=== PATIENT | female | born 1965 | race Caucasian/White ===

== ENCOUNTER 2018-03-03 19:17 | Emergency (ER) | payer SELFPAY ==
[~2018-03-03] VITALS: Ht 177.8 cm; Wt 72.6 kg
[2018-03-03] MEDS ORDERED: XARELTO10 MG ORAL (19:23)
--- NOTE | 2018-03-03 19:39 | Emergency Room Report ---
History of Present Illness General Chief Complaint: General Complaint Source: Patient Present Illness HPI Patient is a 52-year-old female who presents after increased bilateral leg swelling after the plane flight from [place]. Patient reports having prior history of factor V Leiden. She is normally takes Xarelto prophylactically to prevent DVT. She reports having increased swelling to both legs. She presented having episode where she began having increased pain to the right upper extremity which subsequently she began having some right-sided chest pain. She denies any current pain. She states that her breathing does not feel normal currently however she does not feel short of breath at this time. Allergies: Coded Allergies: No Known Allergies (Unverified , 03/03/18) Patient History Past Medical History: see triage record Last Menstrual Period: February 15 Now: No Reviewed Nursing Documentation: PMH: Agreed; PSxH: Agreed Review of Systems All Other Systems: negative except mentioned in HPI Physical Exam Vital Signs Date Time Temp Pulse Resp B/P (MAP) Pulse Ox O2 Delivery O2 Flow Rate FiO2 03/03/18 19:16 97.7 109 16 123/82 98 Room Air 97.7 Sp02 EP Interpretation: reviewed, normal General Appearance: normal inspection, well appearing, no apparent distress, alert, GCS 15, non-toxic Head: atraumatic Eyes: bilateral eye PERRL ENT: normal ENT inspection, hearing grossly normal, normal voice Neck: normal inspection, full range of motion, supple, no bony tend Respiratory: normal inspection, lungs clear, normal breath sounds, no respiratory distress, no retraction, no wheezing Cardiovascular #1: regular rate, rhythm, no edema Gastrointestinal: normal inspection, normal bowel sounds, non tender, soft, no guarding, no hernia Musculoskeletal: normal inspection, back normal, gait/station normal, normal range of motion, no calf tenderness, Brad's Sign negative Neurologic: normal inspection, alert, oriented x3, responsive, [employer] III-XII nml as tested, motor strength/tone normal, speech normal Psychiatric: normal inspection, judgement/insight normal, mood/affect normal Skin: normal inspection, normal color, no rash Medical Decision Making Diagnostic Impression: Primary Impression: Pedal edema Additional Impressions: Abnormal EKG Liver lesion ER Course Patient presented for bilateral lower extremity swelling and palpitations. Differential diagnosis included was not limited to the pulmonary embolism, arrhythmia, hyperthyroidism, pericardial effusion, among othersBecause of complexity of patient's case laboratory testing and imaging studies were ordered. The patient was being previously healthy. She was noted to have initial sinus tachycardia. This seemed to resolve spontaneously. The patient was noted to have multiple risk factors for pulmonary embolism including factor V Leiden. CT of the chest was ordered and patient was informed of the radiation risks. She wants to proceed with CT chest. CT of chest read by radiology showed no evidence of acute pulmonary embolism. The laboratory studies were essentially unremarkable. The duplex ultrasound was ordered however given the patient's negative d-dimer which presented after CT was performed the DVT ultrasound is unlikely to be positive. The patient is advised follow-up with cardiology and to have further imaging done for incidental liver finding on CT Labs Test 03/03/18 19:45 White Blood Count 7.8 K/UL (4.8-10.8) Red Blood Count 4.45 M/UL (4.20-5.40) Hemoglobin 13.6 G/DL (12.0-16.0) Hematocrit 37.9 % (37.0-47.0) Mean Corpuscular Volume 85 FL (80-99) Mean Corpuscular Hemoglobin 30.5 PG (27.0-31.0) Mean Corpuscular Hemoglobin Concent 35.8 G/DL (32.0-36.0) Red Cell Distribution Width 11.3 % (11.6-14.8) Platelet Count 197 K/UL (150-450) Mean Platelet Volume 8.8 FL (6.5-10.1) Neutrophils (%) (Auto) 60.8 % (45.0-75.0) Lymphocytes (%) (Auto) 27.7 % (20.0-45.0) Monocytes (%) (Auto) 9.4 % (1.0-10.0) Eosinophils (%) (Auto) 1.0 % (0.0-3.0) Basophils (%) (Auto) 1.1 % (0.0-2.0) Prothrombin Time 11.0 SEC (9.30-11.50) Prothromb Time International Ratio 1.0 (0.9-1.1) Activated Partial Thromboplast Time 28 SEC (23-33) D-Dimer 0.23 mg/L FEU (0.00-0.49) Sodium Level 136 MMOL/L (136-145) Potassium Level 4.1 MMOL/L (3.5-5.1) Chloride Level 108 MMOL/L (98-107) Carbon Dioxide Level 23 MMOL/L (21-32) Anion Gap 5 mmol/L (5-15) Blood Urea Nitrogen 15 mg/dL (7-18) Creatinine 1.0 MG/DL (0.55-1.30) Estimat Glomerular Filtration Rate 58.7 mL/min (>60) Glucose Level 110 MG/DL (74-106) Calcium Level 9.6 MG/DL (8.5-10.1) Total Bilirubin 0.6 MG/DL (0.2-1.0) Aspartate Amino Transf (AST/SGOT) 19 U/L (15-37) Alanine Aminotransferase (ALT/SGPT) 22 U/L (12-78) Alkaline Phosphatase 85 U/L (46-116) Troponin I 0.007 ng/mL (0.000-0.056) Total Protein 7.6 G/DL (6.4-8.2) Albumin 3.8 G/DL (3.4-5.0) Globulin 3.8 g/dL Albumin/Globulin Ratio 1.0 (1.0-2.7) Urine Opiates Screen Negative (NEGATIVE) Urine Barbiturates Screen Negative (NEGATIVE) Phencyclidine (PCP) Screen Negative (NEGATIVE) Urine Amphetamines Screen Negative (NEGATIVE) Urine Benzodiazepines Screen Negative (NEGATIVE) Urine Cocaine Screen Negative (NEGATIVE) Urine Marijuana (THC) Screen Negative (NEGATIVE) EKG Diagnostic Results Rate: tachycardiac Rhythm: NSR - 101 ST Segments: no acute changes ASA given to the pt in ED: No Rhythm Strip Diag. Results EP Interpretation: yes Rhythm: NSR, no PVC's, no ectopy Last Vital Signs Date Time Temp Pulse Resp B/P (MAP) Pulse Ox O2 Delivery O2 Flow Rate FiO2 03/03/18 19:16 97.7 109 16 123/82 98 Room Air 97.7 Status: improved Disposition: HOME, SELF-CARE Condition: Stable Sin Peralta MD Mar 03, 2018 19:39
[2018-03-03] MEDS ORDERED: Isovue-370 150ml vial INJ PRN (19:45)
[2018-03-03 19:50] VITALS: BP 114/77
[2018-03-03 20:05] LABS: BASOPHILS % (AUTO) 1.1 % (0.0-2.0); HEMATOCRIT 37.9 % (37.0-47.0); HEMOGLOBIN 13.6 G/DL (12.0-16.0); LYMPHOCYTES % (AUTO) 27.7 % (20.0-45.0); MEAN CORPUSCULAR VOLUME 85 FL (80-99); MONOCYTES % (AUTO) 9.4 % (1.0-10.0); NEUTROPHILS % (AUTO) 60.8 % (45.0-75.0); PLATELET COUNT 197 K/UL (150-450); RED BLOOD COUNT 4.45 M/UL (4.20-5.40); RED CELL DISTRIBUTION WIDTH 11.3 % (11.6-14.8); WHITE BLOOD COUNT 7.8 K/UL (4.8-10.8)
[2018-03-03 20:19] LABS: ANION GAP 5 mmol/L (5-15); BLOOD UREA NITROGEN 15 mg/dL (7-18); CALCIUM 9.6 MG/DL (8.5-10.1); CARBON DIOXIDE 23 MMOL/L (21-32); CHLORIDE 108 MMOL/L (98-107); POTASSIUM 4.1 MMOL/L (3.5-5.1); SODIUM 136 MMOL/L (136-145)
[2018-03-03] MEDS ORDERED: XARELTO20 MG ORAL (20:25)
[2018-03-03 20:26] LABS: ALANINE AMINOTRANSFERASE 22 U/L (12-78); ALBUMIN 3.8 G/DL (3.4-5.0); ALKALINE PHOSPHATASE 85 U/L (46-116); ASPARTATE AMINO TRANSFERASE 19 U/L (15-37); BILIRUBIN,TOTAL 0.6 MG/DL (0.2-1.0)
[2018-03-03] MEDS ORDERED: QSYMIA 7.5 MG-1 EACH PO (20:29)
[2018-03-03 20:50] VITALS: BP 122/74
[2018-03-03 21:50] VITALS: BP 117/71
[2018-03-03 22:40] VITALS: BP 117/71
--- NOTE | 2018-03-04 09:57 | Diagnostic Imaging Report ---
Indication: Chest pain Technique: Continuous helical transaxial imaging of the chest was obtained from the thoracic inlet to the upper abdomen during rapid intravenous contrast administration. Arterial phase of enhancement obtained. Coronal 2-D reformats were also obtained and maximum intensity projection images in multiple planes. Study obtained in a Siemens sensation [address] Automatic Exposure Control was utilized. Total Dose length Product (DLP): [address] Dose Index Volume (CTDIvol): 26.39 mGy Comparison: None Findings: The pulmonary artery is well opacified and shows no filling defects. There is no adenopathy, pleural or pericardial effusions are identified. There is no aortic dissection or aneurysm identified within the chest. There is minimal basilar atelectasis. Visualized part of the upper abdomen is unremarkable. Impression: Negative CTA of the chest [facility] has communicated the preliminary results to the Emergency Department. Their findings are largely concordant with this report. The CT scanner at [facility] is accredited by the [employer] and the scans are performed using dose optimization techniques as appropriate to a performed exam including Automatic Exposure control.
== END 2018-03-03 22:40 | disposition home or self-care (01) ==
LOC: EDBD 19:17 → EMR 22:40
DX: R60.0 Localized edema (principal); R94.31 Abnormal electrocardiogram [ECG] [EKG]; K76.9 Liver disease, unspecified; Z79.01 Long term (current) use of anticoagulants; R07.9 Chest pain, unspecified
CPT/HCPCS: 36415; 71275; 80053; 80307; 84484; 85025; 85379; 85610; 85730; 93005; 99283; Q9967